=== PATIENT | male | born 1985 | race Caucasian/White ===

== ENCOUNTER 2025-01-30 02:45 | Emergency (ER) | payer MEDICAID, SELFPAY ==
[2025-01-30] VITALS (7 sets, daily range): BP systolic 92–117; BP diastolic 73–90; PULSE 80–126; RESP 20–41; TEMP 37.1; O2SAT 83–99
--- NOTE | ~2025-01-30 | XR_ITS ---
EXAMINATION: XR chest 1V portable 01/30/2025 03:11 INDICATION: Shortness of breath TECHNIQUE:A single AP semiupright frontal portable images of the chest was obtained COMPARISON: None available FINDINGS: Heart is not enlarged. Mild elevation of the right hemidiaphragm. No pneumothorax. No pleural effusion. No free air under the diaphragm. Moderate- sized patchy opacities scattered throughout both lungs. IMPRESSION: 1: Moderate-sized patchy opacities scattered throughout both lungs. Differential includes but is not limited to edema or pneumonia. Recommend follow-up to resolution. Consider a chest CT for further assessment. Reviewed, dictated and finalized at location Q. IMPRESSION: 1: Moderate-sized patchy opacities scattered throughout both lungs. Differenti al includes but is not limited to edema or pneumonia. Recommend follow-up to re solution. Consider a chest CT for further assessment.
--- NOTE | ~2025-01-30 | CT_ITS ---
CTA CHEST CLINICAL HISTORY: pneumonia, HIV+ . COMPARISON: Chest x-ray today TECHNIQUE: Helical CTA performed from thoracic inlet to upper abdomen 100 mL IV contrast Coronal, sagittal reformats. Multiplanar MIPS CT images acquired with automatic exposure control for dose reduction DLP: 290 mGy-cm FINDINGS: Respiratory motion artifact could obscure distal PE. Pulmonary arteries: No PE. Thoracic Aorta: No dissection or aneurysm. Heart/pericardium: Unremarkable. RV/LV ratio: Normal. Lungs/Pleura: Diffuse bilateral airspace disease. Tracheobronchial tree: Patent. Nodes: No enlarged nodes. Bones: No acute bony abnormality. Soft tissues: Unremarkable. Visualized upper abdomen: Hepatomegaly, with steatosis. IMPRESSION: 1. No large central or segmental PE. Motion artifact could obscure distal PE. 2. Diffuse bilateral airspace disease. Reviewed, dictated and finalized at location A.
--- NOTE | 2025-01-30 03:01 | ECG_ITS ---
Test Date: 2025-01-30 03:06:48 Measurements Intervals Craig Rate: 121 P: 53 VA: 145 QRS: 1 QRSD: 93 T: 53 QT: 428 QTc: 608 Interpretive Statements SINUS TACHYCARDIA PROLONGED QTC ABNORMAL RHYTHM ECG No previous ECG available for comparison Electronically Signed On 01-30-2025 10:38:14 CDT by Clay Lauren M.D.
--- NOTE | 2025-01-30 03:20 | ED.GENADULT ---
HPI - General Adult General Chief complaint: Shortness of Breath/Dyspnea Stated complaint: think I have pneumonia, cough Time Seen by Provider: 01/30/25 02:49 History of Present Illness HPI narrative: Patient is a 39-year-old male who presents emergency department this evening concern for possible pneumonia. Patient states that he is HIV positive but has not been on any HIV medications for at least 3 years. Patient also confirms that although he does not know what his CD4 count is, in the past even while he was on HIV medications it has always been low, he believes even lower than 200. Patient states that he has been having worsening shortness of breath and a cough for the past 2 months but symptoms worsened in the last few weeks. Patient also states that he has been having some hemoptysis but states that yesterday he did cough up a large amount of blood. Denies any fevers or chills. Denies any sick contacts at home. There are no additional modifying, alleviating, or precipitating factors at this time. Related Data Allergies Allergy/AdvReac Type Severity Reaction Status Date / Time No Known Allergies Allergy Verified 01/30/25 02:52 Review of Systems Review of Systems: All systems are reviewed and are negative unless stated otherwise in the HPI. Exam Narrative: General: Alert, awake, afebrile, in moderate distress. HEENT: PERRL, no rhinorrhea, no post nasal drip, blood noted in the oropharynx. Neck: Trachea midline, no JVD, no lymphadenopathy. Cardiovascular: Tachycardic with regular rhythm, no murmurs, rubs or gallops, no peripheral edema. Respiratory: Coarse breath sounds bilaterally, tachypnea, in moderate respiratory distress. Abdomen: Soft, nontender, nondistended, no rebound, no guarding, no peritoneal signs. Musculoskeletal: No joint swelling or deformity, normal muscle tone. Skin: No rashes or petechia, no signs of infection. Psychiatric: Alert and oriented, normal behavior and judgment for situation. Neurological: Alert and oriented to person, place, and time. Follows all commands. No focal deficits, speech is clear and fluent. Course Vital Signs Vital signs: Vital Signs Temperature 98.7 F 01/30/25 02:49 Pulse Rate 80 01/30/25 02:49 Respiratory Rate 24 H 01/30/25 02:49 Blood Pressure 92/75 L 01/30/25 02:49 Temperature 98.7 F 01/30/25 02:49 Pulse Rate 123 H 01/30/25 06:20 Respiratory Rate 29 H 01/30/25 06:20 Blood Pressure 117/90 01/30/25 06:20 Pulse Oximetry 99 01/30/25 06:20 Oxygen Delivery Nasal Cannula 01/30/25 03:05 Oxygen Flow Rate 4 01/30/25 03:05 Medical Decision Making MDM Narrative Medical decision making narrative: The patient was evaluated by myself in the emergency department. History is obtained from patient who is an independent historian and physical exam was performed. External medical records were reviewed at this time. IV was established and pertinent tests were ordered. Patient was administered 2 L IV fluid bolus with normal saline and started on IV antibiotics with vancomycin cefepime due to concern for sepsis likely source pneumonia giving his symptoms, vital sighs triggering sepsis and history of HIV positive unmedicated. EKG was obtained which revealed sinus tachycardia rate of 121 beats per minute, no evidence of acute ischemia. EKG was independently interpreted by me and is currently pending official cardiology read. Laboratory results obtained revealing a LA of 3, AST 130, ALT 51, alkaline phosphatase 200, otherwise unremarkable. Viral swabs negative for COVID /influenza / RSV. Repeat lactic acid after IV fluids noted to be 1.5. Imaging studies obtained included CXR and CT PE protocol which was independently interpreted by me revealing multifocal pneumonia, no PE, which is pending final radiology interpretation. Differential diagnosis considerations include sepsis secondary to infectious process such as pneumonia, PE, TB, PCP pneumonia giving his history of HIV and medical noncompliance, dehydration, electrolyte derangements, acute viral syndrome. Comorbidities impacting this visit include history of HIV with medical noncompliance. I have evaluated and discussed social determinants of health with the patient that could potentially impact subsequent diagnosis and treatment plans. On repeat assessment of the patient, reevaluation revealed that the patient is doing well and is in no acute distress. Patient symptoms have improved since he arrived to our emergency department. Repeat vital signs were all reviewed and noted to be stable. Differential diagnosis and treatment plan were discussed with the patient at bedside. Patient agrees with discussion and after shared medical decision making agrees with transfer. All questions were answered to the patient's satisfaction. [facility] transfer line was contacted at [phone] and transfer was initiated as patient refused to be transferred to [facility]. Patient was accepted at [facility] under accepting physcian Dr. Murphy pending bed placement. [facility] did inform me that there is a lengthy wait list for a medical bed at this time. Patient was also palced on the waitlist for [facility] at [address] Moncada. He did recommend administering steroids and 125 mg of IV Solu-Medrol was administered at this time. [facility] transfer line was contacted at [phone] and I did speak with the on-call hospitalist Dr. Love who also accepted transfer at 0525 and patient is pending a bed at [facility]. I did receive a call back from [facility] with a bed assignment at [phone]. Patient is currently pending transport to [facility]. Critical care time of 75 minutes, exclusive of separately performed procedures, necessary for treating or preventing eminent or life-threatening deterioration of patient's condition of sepsis 2/2 multi of focal pneumonia in the setting of HIV positive with medical noncompliance, transfer to facility for higher level of care focused on patient care provided personally by me and time spent during initial evaluation, physical examination, ordering and performing treatments and interventions, ordering and reviewing laboratory studies, ordering and reviewing radiographic studies, re-evaluation of the patient's condition, evaluation of the patient's response to treatment, and discussion of patient case with multiple consultants. Vital Signs Vital Signs: Vital Signs Temperature 98.7 F 01/30/25 02:49 Pulse Rate 80 01/30/25 02:49 Respiratory Rate 24 H 01/30/25 02:49 Blood Pressure 92/75 L 01/30/25 02:49 Temperature 98.7 F 01/30/25 02:49 Pulse Rate 123 H 01/30/25 06:20 Respiratory Rate 29 H 01/30/25 06:20 Blood Pressure 117/90 01/30/25 06:20 Pulse Oximetry 99 01/30/25 06:20 Oxygen Delivery Nasal Cannula 01/30/25 03:05 Oxygen Flow Rate 4 01/30/25 03:05 Lab Data 01/30/25 03:38 01/30/25 03:38 Labs: Lab Results 01/30/25 01/30/25 01/30/25 Range/Units 03:19 03:38 05:55 WBC 7.6 (4.5-10.0) K/mm3 RBC 3.88 L (4.6-6.20) M/mm3 Hgb 12.3 L (14.0-18.0) g/dL Hct 37.2 L (42.0-52.0) % MCV 95.9 (80-100) fl MCH 31.7 (26-34) pg MCHC 33.1 (32-36) g/dl RDW 15.3 H (11.5-14.5) % Plt Count 218 (150-375) k/mm3 MPV 11.6 H (7.4-10.4) fl Immature Gran % (Auto) 0.5 (0-0.5) % Neut % (Auto) 63.9 (45.5-73.1) % Lymph % (Auto) 27.2 (18.3-44.2) % Ness % (Auto) 7.7 (2.6-8.5) % Eos % (Auto) 0.4 (0-4.4) % Baso % (Auto) 0.3 (0.2-1.2) % Lymph # (Auto) 2.06 (0.9-3.2) K/mm3 Ness # (Auto) 0.6 (0.1-0.6) K/mm3 Eos # (Auto) 0.0 (0-0.3) K/mm3 Baso # (Auto) 0.0 (0.0-0.1) K/mm3 Abs Immat Gran (auto) 0.04 H (0.00-0.031) K/mm3 Absolute Neuts (auto) 4.9 (1.3-6.7) K/mm3 Absolute Nucleated RBC 0.000 (0.0-0.012) K/mm3 Nucleated RBC % 0.0 (0.0-0.2) % PT 14.3 (11.1-14.7) Seconds INR 1.1 APTT 44.1 H (22.3-36.8) Seconds Sodium 137 (137-145) mmol/L Potassium 3.3 L (3.4-5.0) mmol/L Chloride 106 (98-107) mmol/L Carbon Dioxide 21 L (22-30) mmol/L Anion Gap 10 (4-12) mmol/L BUN 19 (9-20) mg/dL Creatinine 0.85 (0.7-1.3) mg/dL Estim Creat Clear Calc 85 ml/min Estimated GFR > 60 (59 - ) Glucose 105 (65-110) mg/dL Lactic Acid 3.0 H 1.5 (0.7-2.0) mmol/L Calcium 8.3 L (8.4-10.2) mg/dL Magnesium 2.0 (1.6-2.3) mg/dL Total Bilirubin 1.2 (0.2-1.3) mg/dL AST 130 H (17-59) U/L ALT 51 H (6-50) U/L Alkaline Phosphatase 200 H (38-126) U/L Total Protein 9.0 H (6.3-8.2) g/dL Albumin 3.0 L (3.5-5.1) g/dL Nasal MRSA (PCR) Pending Influenza A (RT-PCR) Negative (Negative) Influenza B (RT-PCR) Negative (Negative) RSV (RT-PCR) Negative (Negative) SARS-CoV-2 RNA (RT-PCR) Negative (Negative) Critical Care Time Critical Care Time Critical Care Time: Yes Total Critical Care Time: 75 ( Please refer to [facility] for attestation.) Discharge Plan Discharge Clinical Impression: Multifocal pneumonia, Acute hypoxic respiratory failure, HIV positive, Medically noncompliant, Sepsis Patient Disposition: Acute Care Hospital Condition: Stable Patient Language: Persian Follow-up/Referrals: PHYSICIAN NOT ON STAFF,NONSTAFF [Non-Staff] Time of Disposition: 06:31
[2025-01-30 03:51] LABS: Hematocrit 37.2 % (42.0-52.0); Hemoglobin 12.3 g/dL (14.0-18.0); Immature Granulocyte Percent A 0.5 % (0-0.5); Lymphocytes Absolute Auto 2.06 K/mm3 (0.9-3.2); Mean Corpuscular HGB Conc 33.1 g/dl (32-36); Mean Corpuscular Hemoglobin 31.7 pg (26-34); Mean Corpuscular Volume 95.9 fl (80-100); Nucleated Red Blood Cells Absolute Auto 0.000 K/mm3 (0.0-0.012); Nucleated Red Blood Cells Perc 0.0 % (0.0-0.2); Platelet Count Result 218 k/mm3 (150-375); Red Blood Count 3.88 M/mm3 (4.6-6.20); White Blood Count 7.6 K/mm3 (4.5-10.0)
[2025-01-30] MEDS: SODIUM CHLORIDE 0.9% IV 1,000 ML 999 ML IV CONT ×2 (03:55→04:25)
[2025-01-30 04:02] LABS: Alanine Aminotransferase 51 U/L (6-50); Albumin Level 3.0 g/dL (3.5-5.1); Alkaline Phosphatase 200 U/L (38-126); Anion Gap 10 mmol/L (4-12); Aspartate Amino Transferase 130 U/L (17-59); Bilirubin,Total 1.2 mg/dL (0.2-1.3); Blood Urea Nitrogen 19 mg/dL (9-20); Calcium 8.3 mg/dL (8.4-10.2); Carbon Dioxide 21 mmol/L (22-30); Chloride 106 mmol/L (98-107); Estimated CRCL calculation 85 ml/min; Estimated Glomerular Filt Rate > 60; Glucose 105 mg/dL (65-110); Magnesium 2.0 mg/dL (1.6-2.3); Potassium 3.3 mmol/L (3.4-5.0); Sodium 137 mmol/L (137-145); Total Protein 9.0 g/dL (6.3-8.2)
[2025-01-30 04:07] LABS: INR 1.1; Prothrombin Time 14.3 Seconds (11.1-14.7)
[2025-01-30 04:09] LABS: Partial Thromboplastin Time 44.1 Seconds (22.3-36.8)
[2025-01-30] MEDS: CEFEPIME 2 GM in SODIUM CHLORIDE 0.9% IV 50 ML 100 ML IVPB (04:25)
[2025-01-30 04:27] LABS: Influenza A QL RT-PCR Negative (Negative); Influenza B QL RT-PCR Negative (Negative); RSV RNA, RT-PCR Negative (Negative); SARS-CoV-2 RNA PCR Negative (Negative)
[2025-01-30] MEDS: VANCOMYCIN 2,000 MG/NS 500 ML 2,000 MG/500 ML BAG 250 MG IVPB (05:44)
[2025-01-30] MEDS: SODIUM CHLORIDE 0.9% IV 1,000 ML 100 ML IV CONT (06:06)
[2025-01-30 07:10] LABS: MRSA (PCR) NOT DETECTED (NOT DETECTE)
[2025-01-30 07:37] LABS: Add Urine Microscopic? YES; Appearance Urine Clear (Clear); Glucose Urine UA Negative (Negative); Leukocyte Esterase Ur Trace LEU/UL (Negative); Nitrate Urine Negative (Negative); Non Pathogenic Casts 0-2; Specific Grav Ur > 1.045 (1.001-1.035)
== END 2025-01-30 08:58 | disposition short-term general hospital (02) ==
LOC: ANHED 03:40
PROVIDERS: Emergency Provider Emergency Medicine
DX: A41.9 Sepsis, unspecified organism (principal); J18.9 Pneumonia, unspecified organism; J96.01 Acute respiratory failure with hypoxia; T37.5X6A Underdosing of antiviral drugs, initial encounter; Z21 Asymptomatic human immunodeficiency virus [HIV] infection status; Z20.822 Contact with and (suspected) exposure to COVID-19; R00.0 Tachycardia, unspecified; R94.31 Abnormal electrocardiogram [ECG] [EKG]
CPT/HCPCS: 36415; 71045; 71275; 80053; 81001; 83605; 83735; 85025; 85610; 85730; 87040; 87086; 87637; 87641; 93005; 96361; 96365; 96366; 96367; 96375; 99285; J0692; J2919; J3373; J7030; Q9967